=== PATIENT | female | born 1985 | race Caucasian/White ===

== ENCOUNTER → 2019-01-16 | Outpatient (CLI) | payer OTHER ==
[~2019-01-16] MED LIST: KEFLEX500 M1 PO; ONDANSETRON HCL4 M2 PO; TRAMADOL 50 MG50 MG PO
[2019-01-16 12:55] LABS: CREATININE 0.7 mg/dL (0.6-1.3)
== END ==
LOC: M.MRI 01-10 16:31 → M.LAB 12:30 → M.MRI 13:30
PROVIDERS: Psychiatry & Neurology Neuromuscular Medicine
DX: G50.0 Trigeminal neuralgia (principal)

== ENCOUNTER → 2020-08-18 | Outpatient (CLI) | payer OTHER | LOC: M.RAD 08-14 12:35 | PROVIDERS: ATTEND Family Medicine | DX: R10.11 Right upper quadrant pain (principal); M25.511 Pain in right shoulder; G89.29 Other chronic pain ==

== ENCOUNTER → 2020-09-17 | Outpatient (CLI) | payer OTHER | LOC: M.NUC 08-20 13:09 | PROVIDERS: ATTEND Family Medicine | DX: R10.11 Right upper quadrant pain (principal) ==

== ENCOUNTER 2020-12-25 15:18 | Emergency (ER) | payer OTHER ==
[~2020-12-25] VITALS: Ht 167.6 cm; Wt 80.0 kg
[2020-12-25] MEDS ORDERED: NEURONTIN300 MG PO (15:25)
[2020-12-25 15:40] LABS: ABSOLUTE BASOPHILS 0.1 thou/uL (0.0-0.2); ABSOLUTE EOSINOPHILS 0.1 thou/uL (0.0-0.7); ABSOLUTE LYMPHOCYTES 2.6 thou/uL (0.8-5.3); ABSOLUTE MONOCYTES 0.5 thou/uL (0.0-1.2); ABSOLUTE NEUTROPHILS 5.3 thou/uL (1.6-8.1); BASOPHILS 1.3 %; EOSINOPHILS 0.6 %; HEMOGLOBIN 12.7 gm/dL (12.0-15.0); LYMPHOCYTES 30.2 %; MCH 29.2 pg (26.0-34.0); MCHC 34.3 g/dL (28.0-37.0); MCV 85.1 fL (80.0-100.0); MONOCYTES 6.3 %; MPV 9.1 fl. (7.2-11.1); NUCLEATED RBCS 0 /100WBC; PLATELET COUNT* 292 thou/uL (150-400); POLYS 61.6 %; RBC 4.35 mil/uL (4.20-5.00); RDW-CV 14.5 % (10.5-14.5); WBC 8.7 thou/uL (4.0-11.0)
[2020-12-25 15:51] LABS: CALCIUM 9.3 mg/dL (8.5-10.1); CREATININE 0.8 mg/dL (0.6-1.3); POTASSIUM 3.8 mmol/L (3.5-5.1)
[2020-12-25 15:58] LABS: ALBUMIN 4.2 g/dL (3.4-5.0); MAGNESIUM 1.8 mg/dL (1.8-2.4); TOTAL BILIRUBIN 0.4 mg/dL (<0.1-1.0); TOTAL PROTEIN 8.2 g/dL (6.4-8.2)
[2020-12-25 18:07] VITALS: BP 141/70
--- NOTE | 2020-12-26 09:36 | EKG ---
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
--- NOTE | 2020-12-26 09:38 | EKG ---
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1985 Requested By: Narayan Phipps Order Number: [id number] MD: Nathan Patrick Measurements Intervals [place] Rate: 74 P: 2 [place]: 159 QRS: 39 QRSD: 92 T: 49 QT: 403 QTc: 448 Interpretive Statements Sinus rhythm Baseline wander in lead(s) V2 Compared to ECG 12/25/2020 15:23:57 No significant changes Electronically Signed On 12-26-2020 9:38:25 CDT by Nathan Patrick [email or web address] <ELECTRONICALLY SIGNED> By: Nathan Patrick MD, [facility] 12/26/20 0938 1727 1727 Nathan Patrick MD, [facility] /EPI
== END 2020-12-25 18:08 | disposition home or self-care (01) ==
LOC: M.ERS 15:18
PROVIDERS: Emergency Medicine Emergency Medical Services
DX: R07.89 Other chest pain (principal); R42 Dizziness and giddiness; R11.0 Nausea; Z90.49 Acquired absence of other specified parts of digestive tract; Z79.899 Other long term (current) drug therapy; Z87.891 Personal history of nicotine dependence

== ENCOUNTER 2021-03-23 13:14 | Emergency (ER) | payer OTHER ==
[~2021-03-23] VITALS: Ht 167.6 cm; Wt 81.7 kg
[~2021-03-23 13:14] MED LIST changes: +NEURONTIN300 MG PO
[2021-03-23] MEDS ORDERED: TORADOL 10 MG T10 MG PO (14:12)
[2021-03-23] MEDS ORDERED: CEPHALEXIN500 MG PO (16:26)
[2021-03-23 16:30] VITALS: BP 140/95
== END 2021-03-23 16:30 | disposition home or self-care (01) ==
LOC: M.ERS 13:14
DX: S61.012A Laceration without foreign body of left thumb without damage to nail, initial encounter (principal); Z90.49 Acquired absence of other specified parts of digestive tract; Z98.890 Other specified postprocedural states; Z79.899 Other long term (current) drug therapy; Z87.891 Personal history of nicotine dependence; W26.0XXA Contact with knife, initial encounter; Y93.89 Activity, other specified; Y92.89 Other specified places as the place of occurrence of the external cause; Y99.8 Other external cause status